=== PATIENT | male | born 1955 | race Two or more races ===

== ENCOUNTER 2023-07-27 09:44 | Outpatient (REF) | payer OTHER, BC, SELFPAY ==
--- NOTE | ~2023-07-27 | CT_ITS ---
EXAMINATION: CT ANGIOGRAM OF THE CHEST WITH CONTRAST (CT PULMONARY ANGIOGRAM FOR PE) CLINICAL INFORMATION: 67-year-old male presents for evaluation of pulmonary embolism. COMPARISON: No pertinent prior studies are available for comparison. TECHNIQUE: Prior to contrast administration, noncontrast localization images were obtained. Subsequently, multidetector volumetric imaging was performed from the thoracic inlet to below the diaphragms following the administration of 65 mL Omnipaque 350 intravenous contrast. No contrast reaction reported. Sagittal, coronal, and MIP oblique sagittal reformatted images were obtained on the CT workstation, uploaded to PACS, and reviewed. This CT examination was performed using dose optimization techniques as appropriate, variously including the following: *Automated exposure control *Adjustment of mA and/or kV according to patient size (this includes techniques or standardized protocols for targeted exams where dose is matched to indication/reason for exam; i.e. extremities or head) *Use of iterative reconstruction technique DLP: Total exam dose-length product 126 mGy-cm FINDINGS: LUNGS AND PLEURA: Trachea and central airways are widely patent and normal in caliber. Lungs have slightly mosaic attenuation. This suggests likelihood of air trapping phenomenon from mild inflammation of airways. No interstitial lung disease. No pulmonary nodularity, mass or pleural effusion. QUALITY OF STUDY/CONTRAST BOLUS: Satisfactory. PULMONARY ARTERIES: The pulmonary arteries are normal in size. No embolic filling defects within the main, lobar or segmental vessels. OTHER CARDIOVASCULAR: The heart size is normal. No pericardial effusion. There is atherosclerotic calcification of the left anterior descending coronary artery. Thoracic aorta is normal. MEDIASTINUM/LOWER NECK: No mediastinal mass. Thyroid gland is unremarkable. The esophagus has normal wall thickness. LYMPHATICS: No pathologic sized axillary, hilar or mediastinal lymph nodes. UPPER ABDOMEN: Adrenal glands are normal. No acute or suspicious abnormalities in the visualized portion of the upper abdomen. OSSEOUS STRUCTURES: Unremarkable. CT/CT angio chest PE protocol IMPRESSION: * No evidence of either acute or chronic pulmonary embolism. * Lungs have slightly mosaic attenuation which suggests air trapping phenomenon.
[2023-07-27] MEDS: iohexoL 350 MG/ML 100 ML INFUS..BTL 65 ML IV (10:20)
[2023-07-28 10:21] LABS: Creatinine POC 1.1 mg/dL (0.5-1.4); GFR POC > 60
== END 2023-07-27 09:45 | disposition home or self-care (01) ==
LOC: HO.CT 09:44
PROVIDERS: PCP Internal Medicine; Visit Provider Internal Medicine
DX: I26.99 Other pulmonary embolism without acute cor pulmonale (principal)
CPT/HCPCS: 71275; 82565; Q9967